=== PATIENT | male | born 1955 | race African-American/Black ===

== ENCOUNTER 2019-08-24 23:37 | Emergency (ER) | payer MEDICARE, MEDICAID ==
[~2019-08-24] VITALS: Ht 182.9 cm; Wt 51.7 kg
[2019-08-24] MEDS ORDERED: LORazepam Inj 2mg/ml 1ml IV ONE (23:45)
[2019-08-25] MEDS ORDERED: Tetanus/Diptheria/Pertussis IM ONE
[2019-08-25] MEDS ORDERED: Augmentin 875mg Tab ORAL ONE
[2019-08-25] MEDS ORDERED: ATENOLOL25 MG ORAL (00:14)
[2019-08-25] MEDS ORDERED: HYDROCHLOROTH12.5 M2 ORAL (00:14)
[2019-08-25] MEDS ORDERED: ABILIFY2 MG ORAL (00:14)
[2019-08-25 00:18] VITALS: BP 136/92
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
[2019-08-25] MEDS ORDERED: NAPROXEN250 MG ORAL (02:09)
[2019-08-25] MEDS ORDERED: AUGMENTIN 875-1 EAC1 ORAL (02:11)
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
[2019-08-25 02:38] VITALS: BP 136/92
--- NOTE | 2019-08-25 02:38 | NUR ---
ED Nurse Note: Pt cleared by health care Provider for discharge. DC instructions/prescription was given and explained to pt and verbalized understanding of teachings. All medical deviecs such as ID band removed. Pt is AAO x4, ambulatory and left with all personal belongings.
--- NOTE | 2019-08-25 04:03 | Diagnostic Imaging Report ---
EXAM: XR Right Hand Complete, 3 or More Views CLINICAL HISTORY: PAIN TECHNIQUE: Frontal, lateral and oblique views of the right hand. COMPARISON: No relevant prior studies available. FINDINGS: Comminuted mildly displaced fracture distal ulna diaphysis/metaphysis and avulsion fracture fragment ulnar styloid. Age-indeterminate irregularity of the distal radial metaphysis.
--- NOTE | 2019-08-25 04:05 | Diagnostic Imaging Report ---
EXAM: XR Right Wrist Complete, 3 or More Views CLINICAL HISTORY: PAIN TECHNIQUE: Frontal, lateral and oblique views of the right wrist. COMPARISON: No relevant prior studies available. FINDINGS: Comminuted mildly displaced fracture deformity distal ulnar diaphysis and metaphysis and age-indeterminate avulsion fracture of the ulnar styloid. Deformity of the distal radius may be chronic. Clinical correlation at site is required.
== END 2019-08-25 02:35 | disposition home or self-care (01) ==
LOC: EDBD 23:37 → EMR 23:59
DX: S52.501A Unspecified fracture of the lower end of right radius, initial encounter for closed fracture (principal); S52.601A Unspecified fracture of lower end of right ulna, initial encounter for closed fracture; W51.XXXA Accidental striking against or bumped into by another person, initial encounter; Y92.9 Unspecified place or not applicable; I10 Essential (primary) hypertension; Z23 Encounter for immunization; W50.3XXA Accidental bite by another person, initial encounter; F14.10 Cocaine abuse, uncomplicated
CPT/HCPCS: 29125; 73110; 73130; 80307; 90471; 90715; 96361; 96374; 99284; J7030

== ENCOUNTER 2020-04-19 05:31 | Emergency (ER) | payer MEDICARE, MEDICAID ==
[~2020-04-19] VITALS: Ht 172.7 cm; Wt 72.6 kg
[~2020-04-19 05:31] MED LIST: ABILIFY2 MG ORAL; ATENOLOL25 MG ORAL; AUGMENTIN 875-1 EAC1 ORAL; HYDROCHLOROTH12.5 M2 ORAL; NAPROXEN250 MG ORAL
[2020-04-19 05:49] VITALS: BP 155/111
--- NOTE | 2020-04-19 05:51 | NUR ---
Nurse Note: Pt walked in c/o hearing voices to harm himself. Pt stated no plan but has thoughts to self harm. Pt stated he takes risperidone unk dose but is not complient. Pt stated he "may have taken meth". Pt is a poor historian and rambles unnessary information. All safety measures met; will continue to monitor.
[2020-04-19] MEDS ORDERED: hydroCHLOROthiazide 25mg cap ORAL ONE (06:00)
[2020-04-19] MEDS ORDERED: Atenolol 25mg tab ORAL ONE (06:00)
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
[2020-04-19 07:05] VITALS: BP 123/84
--- NOTE | 2020-04-19 07:06 | NUR ---
Nurse Note: Pt vital signs rechecked; MD aware of new BP 123/84. Pt stated he does not hear voices anymore. Pt stated he feels better. All safety measures met; will endorse care to DONNA Rodriguez
[2020-04-19] MEDS ORDERED: ABILIFY2 MG ORAL (07:17)
[2020-04-19] MEDS ORDERED: HYDROCHLOROTHIA25 MG ORAL (07:17)
[2020-04-19] MEDS ORDERED: ATENOLOL25 MG ORAL (07:17)
[2020-04-19] MEDS ORDERED: TYLENOL325 MG ORAL (07:17)
[2020-04-19 07:25] VITALS: BP 118/80
--- NOTE | 2020-04-19 07:25 | NUR ---
ER DISCHARGE NOTE: Patient is cleared to be discharged per ERMD, pt is aox4, on room air, with stable vital signs. pt was given dc and prescription instructions, pt was able to verbalize understanding, pt id band removed. pt is able to ambulate with steady gait. pt took all belongings.
== END 2020-04-19 07:25 | disposition home or self-care (01) ==
LOC: EMR 06:10
DX: F20.9 Schizophrenia, unspecified (principal); I10 Essential (primary) hypertension; M54.5 Low back pain; G89.29 Other chronic pain; F17.210 Nicotine dependence, cigarettes, uncomplicated; R05 Cough; F19.10 Other psychoactive substance abuse, uncomplicated; Z91.14 Patient's other noncompliance with medication regimen
CPT/HCPCS: 99283

== ENCOUNTER 2020-05-11 23:01 | Emergency (ER) | payer MEDICARE, MEDICAID ==
[~2020-05-11] VITALS: Ht 175.3 cm; Wt 81.6 kg
[~2020-05-11 23:01] MED LIST changes: +HYDROCHLOROTHIA25 MG ORAL; +TYLENOL325 MG ORAL
--- NOTE | 2020-05-11 23:18 | NUR ---
ED Nurse Note: Walk-in patient with complaints of arthritic hand pain. Will continue to monitor for discharge.
[2020-05-11 23:20] VITALS: BP 141/77
[2020-05-11] MEDS ORDERED: TRAZODONE HCL150 MG ORAL (23:27)
[2020-05-11] MEDS ORDERED: ACETAMINOPHEN500 M3 ORAL (23:27)
[2020-05-11] MEDS ORDERED: RISPERDAL2 MG ORAL (23:27)
--- NOTE | 2020-05-11 23:28 | Emergency Room Report ---
History of Present Illness General Chief Complaint: Behavioral Complaint Source: Patient, Medical Record Present Illness HPI Is a 64-year-old male with a history of schizophrenia. He presents with chief complaint of back pain and feeling paranoid. He was just discharged from a [facility] after a 72-hour stay. He alleged that they did not give him any prescription for medication. He is supposed to be on Risperdal and trazodone. He said he is hearing voices but not suicidal or homicidal. Does have a history of PCP and cocaine abuse. He also complained of back pain. This is a chronic issue. No incontinence of bowel or urine. No trauma. No fever chills. Pain is 7 out of 10. Worse with walking. He said he got worse because he been caring a lot of bottle pineda in his book bag. Allergies: Coded Allergies: No Known Allergies (Unverified , 08/21/19) COVID-19 Screening COVID-19 risk:Contact w/high r: No Has patient experienced interiano: No COVID-19 Testing performed ELECTRICAL MAINTENANCE SUPERVISOR: No Patient History Past Medical History: see triage record, old chart reviewed Past Surgical History: none Family History: none Social History: tobacco use, drug use Immunizations: other Reviewed Nursing Documentation: PMH: Agreed; PSxH: Agreed Nursing Documentation-PMH Hx Hypertension: Yes Hx Asthma: Yes Review of Systems ENT: Denies: sore throat Cardiovascular: Denies: chest pain, palpitations Gastrointestinal/Abdominal: Denies: nausea, vomiting, diarrhea Musculoskeletal: Reports: back problems Skin: Denies: rash Neurological: Denies: PORRAS, seizures All Other Systems: negative except mentioned in HPI Physical Exam Vital Signs Date Time Temp Pulse Resp B/P (MAP) Pulse Ox O2 Delivery O2 Flow Rate FiO2 05/11/20 23:05 98.1 68 18 141/77 (98) 99 Room Air Vitals unremarkable except for hypertension Sp02 EP Interpretation: reviewed, normal General Appearance: alert/responsive, no apparent distress, non-toxic Head: normocephalic, atraumatic Eyes: PERRL, EOMI ENT: oropharynx normal Neck: supple/symm/no masses Respiratory: effort normal, no rhonchi, no wheezing Cardiovascular: no murmur, gallop, rub Gastrointestinal: non-tender, no mass, non-distended, no rebound/guarding, normal bowel sounds Musculoskeletal: gait & station normal Neurologic: oriented x3, sensory intact, motor strength/tone normal Skin: no rash, normal palpation Medical Decision Making Homeless Attestation I, The treating physician, Dr Adriel Lema, has assessed and agrees that patient is medically stable for discharge to an outpatient disposition. Diagnostic Impression: Primary Impression: Schizophrenia Qualified Codes: F20.0 - Paranoid schizophrenia Additional Impression: Low back pain Qualified Codes: M54.5 - Low back pain ER Course Presents with schizophrenia. No acute process that warrants 5150. He is not s uicidal or homicidal. He is asked to be placed back on his medication. His back pain is chronic. He is asking for Tylenol. He does have a history of substance abuse. Tell him to stop. This patient is a chronic risk of self injury due to poor impulse control, limited coping skills, and judgment intermittently impaired by intoxication. I believe that the available clinical evidence to suggest that these characteristics derived primarily from personality disorder and are likely very stable over time. Hospitalization would likely attenuate risk of self-harm only during [facility] period, without lasting risk reduction. Serious self-harm, while possible, would likely be inadvertent, and because of impulsivity, and foreseeable. For these reasons, I do not believe hospitalization would provide meaningful reduction in risk of self-harm. Last Vital Signs Date Time Temp Pulse Resp B/P (MAP) Pulse Ox O2 Delivery O2 Flow Rate FiO2 05/11/20 23:20 68 18 Room Air 05/11/20 23:20 98.1 141/77 99 Status: improved Disposition: HOME, SELF-CARE Condition: Stable Scripts Risperidone* (RISPERDAL*) 2 Mg Tablet 2 MG ORAL DAILY, #30 TAB 0 Refills Prov: Adriel Lema MD 05/11/20 Trazodone* (TRAZODONE*) 150 Mg Tablet 150 MG ORAL BEDTIME, #30 TAB Prov: Adriel Lema MD 05/11/20 Acetaminophen* (ACETAMINOPHEN EXTRA STRENGTH*) 500 Mg Tablet 500 MG ORAL Q8H PRN for Fever/Headache/Mild Pain, #30 TAB Prov: Adriel Lema MD 05/11/20 Additional Instructions: Follow-up with mental health in a week. Stop using drugs. Follow-up with your doctor in 7 days. Return if worse. Adriel Lema MD May 11, 2020:28
[2020-05-11] MEDS ORDERED: Acetaminophen 500mg (ES) tab ORAL ONE (23:30)
[2020-05-11 23:32] VITALS: BP 141/77
--- NOTE | 2020-05-11 23:32 | NUR ---
ER DISCHARGE NOTE: Patient is cleared to be discharged per ERMD, pt is aox4, on room air, with stable vital signs. pt was given dc and prescription instructions, pt was able to verbalize understanding, pt id band removed. patient departed with all belongings.
== END 2020-05-11 23:30 | disposition home or self-care (01) ==
LOC: EMR 23:20
DX: F20.0 Paranoid schizophrenia (principal); M54.5 Low back pain; I10 Essential (primary) hypertension; G89.29 Other chronic pain
CPT/HCPCS: 99282